=== PATIENT | male | born 1990 | race African-American/Black ===

== ENCOUNTER 2019-08-17 14:30 | Emergency (ER) | payer OTHER ==
[~2019-08-17] VITALS: Ht 177.8 cm; Wt 100.0 kg
[2019-08-17] MEDS ORDERED: LIDOCAINE 5% TRANSDERMAL PATCH TD ONE (16:45)
[2019-08-17] MEDS ORDERED: METHOCARBAMOL 500 MG TABLET PO ONE (16:45)
[2019-08-17] MEDS ORDERED: IBUPROFEN 800 MG TABLET PO ONE (16:45)
[2019-08-17] MEDS ORDERED: SODIUM CHLORIDE 0.9% 100 ML ONE (18:32)
[2019-08-17] MEDS ORDERED: IOVERSOL 350 MG/ML 150 ML VIAL ONE (18:33)
[2019-08-17 18:53] LABS: BASOPHILS % (AUTO) 0.6 % (0.0-2.0); EOSINOPHILS % (AUTO) 2.7 % (1.0-6.0); HEMATOCRIT 37.8 % (41-53); HEMOGLOBIN 12.9 g/dL (13.5-17.5); LYMPHOCYTES # (AUTO) 1.9 K/uL (1.0-4.8); LYMPHOCYTES % (AUTO) 26.5 % (22.0-44.0); MEAN CORPUSCULAR VOLUME 79 fL (80-100); MONOCYTES # (AUTO) 0.7 K/uL (0.1-1.0); MONOCYTES % (AUTO) 9.9 % (2.0-9.0); NEUTROPHILS # (AUTO) 4.4 K/uL (1.8-7.7); NEUTROPHILS % (AUTO) 60.3 % (40.0-70.0); PLATELET COUNT (AUTO) 300 K/uL (150-450); RED BLOOD CELL COUNT(AUTO) 4.76 MIL/uL (4.50-5.90)
[2019-08-17 18:54] LABS: ANION GAP 7 mmol/L (8-16); CARBON DIOXIDE 30 mmol/L (22-29); CHLORIDE 103 mmol/L (98-107); CREATININE 0.96 mg/dL (0.60-1.30); GLOMERULAR FILTR. RATE CALC > 60 mL/min (>60); GLUCOSE,RANDOM 73 mg/dL (70-110); POTASSIUM 4.2 mmol/L (3.5-5.1); SODIUM SERUM 140 mmol/L (136-145); UREA NITROGEN, BLOOD 10 mg/dL (7-18)
[2019-08-17 19:00] LABS: ALANINE AMINOTRANSFERASE 23 U/L (12-78); ALBUMIN 3.8 g/dL (3.4-5.0); ALKALINE PHOSPHATASE 73 U/L (46-116); ASPARTATE AMINOTRANSFERASE 19 U/L (15-37); BILIRUBIN,TOTAL 0.5 mg/dL (0.1-1.0); TOTAL PROTEIN, SERUM 7.7 g/dL (6.4-8.2)
[2019-08-17 20:25] VITALS: BP 111/69
== END 2019-08-17 22:03 | disposition home or self-care (01) ==
LOC: EMS 14:33
DX: R07.81 Pleurodynia (principal); R03.0 Elevated blood-pressure reading, without diagnosis of hypertension; F12.90 Cannabis use, unspecified, uncomplicated; V49.9XXA Car occupant (driver) (passenger) injured in unspecified traffic accident, initial encounter; W22.19XA Striking against or struck by other automobile airbag, initial encounter; Y93.89 Activity, other specified; Y92.488 Other paved roadways as the place of occurrence of the external cause; Y99.8 Other external cause status
CPT/HCPCS: 36415; 71046; 71260; 72193; 74160; 80053; 85025; 99284; J7050; Q9967

== ENCOUNTER 2019-08-27 11:22 | Emergency (ER) | payer OTHER ==
[~2019-08-27] VITALS: Ht 175.3 cm; Wt 100.0 kg
[2019-08-27] MEDS ORDERED: KETOROLAC TROMETHAMINE 30 MG/ML VIAL IVP ONE (13:30)
[2019-08-27] MEDS ORDERED: IOVERSOL 320 MG/ML 100 ML VIAL ONE (14:25)
[2019-08-27] MEDS ORDERED: SODIUM CHLORIDE 0.9% 100 ML ONE (14:25)
[2019-08-27 17:10] VITALS: BP 131/73
== END 2019-08-27 17:17 | disposition home or self-care (01) ==
LOC: EMS 11:23
DX: S30.1XXA Contusion of abdominal wall, initial encounter (principal); F12.90 Cannabis use, unspecified, uncomplicated; V49.9XXA Car occupant (driver) (passenger) injured in unspecified traffic accident, initial encounter; Y93.89 Activity, other specified; Y92.89 Other specified places as the place of occurrence of the external cause; Y99.8 Other external cause status
CPT/HCPCS: 74177; 96374; 99284; J1885; J7050; Q9967

== ENCOUNTER 2025-03-07 12:01 | Emergency (ER) | payer OTHER ==
[~2025-03-07] VITALS: Ht 175.3 cm; Wt 99.1 kg
[2025-03-07 12:47] LABS: PLATELET COUNT (AUTO) 278 K/uL (150-450); RED BLOOD CELL COUNT(AUTO) 4.89 MIL/uL (4.50-5.90); RED CELL DISTRIBUTION WIDTH 13.2 % (11.5-14.5); WHITE BLOOD COUNT (AUTO) 4.6 K/uL (4.5-11.0)
[2025-03-07 13:02] LABS: CALCIUM, TOTAL 8.4 mg/dL (8.8-10.5); CREATININE 0.94 mg/dL (0.60-1.30); GLOMERULAR FILTR. RATE CALC > 60 mL/min (>60); GLUCOSE,RANDOM 85 mg/dL (70-110); SODIUM SERUM 141 mmol/L (136-145); TROPONIN I-HIGH SENSITIVITY 7 ng/L (<76); UREA NITROGEN, BLOOD 8 mg/dL (7-18)
[2025-03-07] MEDS: ACETAMINOPHEN 500 MG TABLET PO ONE (13:03)
[2025-03-07 13:06] LABS: ASPARTATE AMINOTRANSFERASE 39.0 U/L (15-37); CREATINE KINASE, TOTAL ONLY 624.0 U/L (39-308); TOTAL PROTEIN, SERUM 5.5 g/dL (6.4-8.2)
[2025-03-07 13:35] VITALS: BP 121/78; PULSE 81; RESP 18; TEMP 97.1; O2SAT 99
== END 2025-03-07 14:00 | disposition home or self-care (01) ==
LOC: EMS 12:04
DX: R60.0 Localized edema (principal); F12.90 Cannabis use, unspecified, uncomplicated; F14.90 Cocaine use, unspecified, uncomplicated; F17.210 Nicotine dependence, cigarettes, uncomplicated; F10.90 Alcohol use, unspecified, uncomplicated; Y90.9 Presence of alcohol in blood, level not specified
CPT/HCPCS: 80048; 80076; 82550; 83880; 84484; 85025; 93005; 93970; 99284